=== PATIENT | female | born 1975 ===

== ENCOUNTER 2020-07-26 20:12 | Emergency (ER) | payer SELFPAY ==
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
[2020-07-26] MEDS ORDERED: HYDROcodone/ACETAMINOPHEN 5-325 MG TAB PO ONE (21:51)
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
[2020-07-27 02:17] VITALS: BP 159/100
== END 2020-07-26 22:20 | disposition home or self-care (01) ==
LOC: ED 20:12
DX: S16.1XXA Strain of muscle, fascia and tendon at neck level, initial encounter (principal); S29.011A Strain of muscle and tendon of front wall of thorax, initial encounter; V89.2XXA Person injured in unspecified motor-vehicle accident, traffic, initial encounter; Y93.89 Activity, other specified; Y92.89 Other specified places as the place of occurrence of the external cause; Y99.8 Other external cause status
CPT/HCPCS: 72040; 72070; 99284